=== PATIENT | female | born 1950 | race Caucasian/White ===

== ENCOUNTER 2023-06-08 08:20 | Emergency (ER) | payer MEDICARE, OTHER | END 2023-06-08 09:50 | disposition home or self-care (01) | LOC: ED 08:20 | DX: K62.5 Hemorrhage of anus and rectum (principal); C34.90 Malignant neoplasm of unspecified part of unspecified bronchus or lung; C79.9 Secondary malignant neoplasm of unspecified site; K63.5 Polyp of colon; K57.90 Diverticulosis of intestine, part unspecified, without perforation or abscess without bleeding; Z79.01 Long term (current) use of anticoagulants; Z88.8 Allergy status to other drugs, medicaments and biological substances ==